=== PATIENT | female | born 1980 | race Caucasian/White ===

== ENCOUNTER 2024-10-04 09:41 | Emergency (ER) | payer OTHER ==
[~2024-10-04] VITALS: Ht 162.6 cm; Wt 81.6 kg
[2024-10-04] MEDS: KETOROLAC TROMETHAMINE 60 MG/2 ML VIAL IM ONE (11:23)
[2024-10-04 12:12] VITALS: PULSE 63; RESP 16; TEMP 97.9; O2SAT 100
[2024-10-04] MEDS ORDERED: METHOCARBAMOL500 MG PO (12:13)
[2024-10-04] MEDS ORDERED: NAPROSYN500 MG PO (12:13)
== END 2024-10-04 12:36 | disposition home or self-care (01) ==
LOC: ER 10:28
DX: M54.2 Cervicalgia (principal); M54.89 Other dorsalgia; V43.52XA Car driver injured in collision with other type car in traffic accident, initial encounter
CPT/HCPCS: 71045; 99283; J1885